=== PATIENT | male | born 1945 | race Caucasian/White ===

== ENCOUNTER 2025-06-14 12:13 | Emergency (ER) | payer OTHER ==
[~2025-06-14] VITALS: Ht 172.7 cm; Wt 66.2 kg
[2025-06-14 12:21] VITALS: TEMP 98.3
[2025-06-14] MEDS ORDERED: SODIUM BICARBONATE 50 MEQ/50 ML VIAL ONE (12:21)
[2025-06-14] MEDS ORDERED: LIDOCAINE/PF 1% 30 ML VIAL ONE (12:21)
[2025-06-14] MEDS ORDERED: IOHEXOL 300 MG/ML 100 ML VIAL ONE (12:21)
[2025-06-14] MEDS ORDERED: HEPARIN SODIUM 1000 UNITS/NS 500 ML ONE (12:22)
[2025-06-14] MEDS: TICAGRELOR 90 MG TABLET PO ONE (12:25)
[2025-06-14] MEDS: HEPARIN SODIUM,PORCINE 5,000 UNITS/ML VIAL IVP ONE (12:26)
[2025-06-14 12:36] LABS: PLATELET COUNT (AUTO) 202 K/uL (150-450); RED BLOOD CELL COUNT(AUTO) 4.12 MIL/uL (4.50-5.90); RED CELL DISTRIBUTION WIDTH 14.0 % (11.5-14.5); WHITE BLOOD COUNT (AUTO) 11.2 K/uL (4.5-11.0)
[2025-06-14 12:41] LABS: CALCIUM, TOTAL 8.7 mg/dL (8.8-10.5); CREATININE 1.11 mg/dL (0.60-1.30); GLOMERULAR FILTR. RATE CALC > 60 mL/min (>60); GLUCOSE,RANDOM 184 mg/dL (70-110); SODIUM SERUM 140 mmol/L (136-145); UREA NITROGEN, BLOOD 34 mg/dL (7-18)
[2025-06-14 12:48] LABS: RBC MORPHOLOGY COMMENT ABNORMAL RBC MORPH
[2025-06-14 12:51] LABS: TROPONIN I-HIGH SENSITIVITY 930 ng/L (<76)
[2025-06-14] MEDS ORDERED: HEPARIN SODIUM,PORCINE 5,000 UNITS/ML VIAL IVP PRN ×2 (13:15)
[2025-06-14 13:30] VITALS: BP 131/94; PULSE 98; RESP 20; O2SAT 98
[2025-06-14] MEDS: ATORVASTATIN CALCIUM 40 MG TABLET PO ONE (13:32)
[2025-06-14] MEDS: HEPARIN SODIUM 25000 UNITS/D5W 250 ML IV PRN (13:32)
[2025-06-14] MEDS ORDERED: EPINEPHrine 1:10,000 [1 MG/10 ML] SYRINGE ONE (13:54)
== END 2025-06-14 16:45 ==
LOC: EMS 12:13
DX: I21.09 ST elevation (STEMI) myocardial infarction involving other coronary artery of anterior wall (principal); I10 Essential (primary) hypertension; I48.91 Unspecified atrial fibrillation; I46.9 Cardiac arrest, cause unspecified
CPT/HCPCS: 99291; 96365; 96366; 96375; 80048; 83735; 83880; 84484; 85025; 85610; 85730; 86850; 86900; 86901; 36415; 71045; 93005; J0169; J1644 ×3; J3490 ×2; Q9967